=== PATIENT | male | born 1995 | race Caucasian/White ===

== ENCOUNTER 2022-05-29 07:43 | Emergency (ER) | payer SELFPAY ==
[~2022-05-29] VITALS: Ht 180.3 cm; Wt 109.0 kg
[2022-05-29] MEDS ORDERED: ACETAMINOPHEN 325MG TABLET PO ONE (09:00)
[2022-05-29] MEDS ORDERED: IBUPROFEN 400MG TABLET PO ONE (09:00)
[2022-05-29] MEDS ORDERED: TETANUS, DIPHTHERIA, PERTUSSIS VAC/PF 0.5ML (>10YR OLD) IM ONE (09:00)
[2022-05-29 09:11] VITALS: BP 143/98
== END 2022-05-29 12:40 | disposition home or self-care (01) ==
LOC: ER 07:43
DX: S09.90XA Unspecified injury of head, initial encounter (principal); W18.30XA Fall on same level, unspecified, initial encounter; Y93.89 Activity, other specified; Y92.89 Other specified places as the place of occurrence of the external cause; Y99.8 Other external cause status
CPT/HCPCS: 70486; 90715; 99284